=== PATIENT | male | born 1975 | race Hispanic/Latino ===

== ENCOUNTER 2019-06-29 21:32 | Emergency (ER) | payer BC ==
[~2019-06-29] VITALS: Ht 175.3 cm; Wt 130.2 kg
--- OUTSIDE RECORDS SUMMARY | 2019-06-29 21:35 | XMS REPORT ---
Author Author [facility] Address Unknown Phone Unavailable Care Team Providers Care Young Adult Librarian Name Role Phone Unavailable Unavailable Problems This patient has no known problems. Allergies, Adverse Reactions, Alerts This patient has no known allergies or adverse reactions. Medications This patient has no known medications. Encounters Start Date/Time End Date/Time Encounter Type Admission Type Attending [facility] Facility Care Department Encounter ID 2017-07-30 00:00:00 2017-07-30 00:00:00 Outpatient [facility] [id number] 2017-07-29 00:00:00 2017-07-29 00:00:00 Outpatient [facility] [id number] 2017-07-17 19:25:23 2017-07-17 19:25:23 Emergency [facility] [id number]
--- NOTE | 2019-06-30 01:15 | NUR ---
pt sleeping at this time. NAD noted
--- NOTE | 2019-06-30 01:26 | Diagnostic Imaging Report ---
EXAM: CT Abdomen WITHOUT contrast INDICATION: Abdominal pain COMPARISON: None. TECHNIQUE: Abdomen was scanned utilizing a multidetector helical scanner from the lung base to the iliac crest without administration of IV contrast. Absence of intravenous contrast decreases sensitivity for detection of focal lesions and vascular pathology. Coronal and sagittal reformations were obtained. Routine protocol was performed. IV CONTRAST: None ORAL CONTRAST: None COMPLICATIONS: None RADIATION DOSE: Total DLP: 1368 mGy*cm Estimated effective dose: (DLP x 0.015 x size factor) mSv CTDIvol has been reviewed. It is below the limits set by the Radiation Protocol Committee (RPC). Dose modulation, iterative reconstruction, and/or weight based adjustment of the mA/kV was utilized to reduce the radiation dose to as low as reasonably achievable. FINDINGS: LINES and TUBES: None. LOWER THORAX: Unremarkable HEPATOBILIARY: Diffuse hepatic hypoattenuation. No focal hepatic lesions. No biliary ductal dilation. GALLBLADDER: No radio-opaque stones or sludge. No wall thickening. SPLEEN: No splenomegaly. PANCREAS: No focal masses or ductal dilatation. ADRENALS: No adrenal nodules KIDNEYS/URETERS: No hydronephrosis. No cystic or solid mass lesions. No stones. Multiple bilateral nonobstructive renal calculi, largest in the right kidney is in the superior pulmonary calyx and measures 9 mm, largest in the left kidney is in an inferior pole minor calyx and measures 5 mm. GI TRACT: Subtle focal wall thickening and pericolonic fat stranding at the distal descending colon. Numerous colonic diverticula. No abnormal distention or evidence of bowel obstruction. LYMPH NODES: No lymphadenopathy. VESSELS: Unremarkable. PERITONEUM / RETROPERITONEUM: No free air or fluid. BONES: Unremarkable. SOFT TISSUES: There are fat containing inguinal hernias. IMPRESSION: 1. Acute uncomplicated distal descending colon diverticulitis. There are also diverticuli throughout the colon. 2. Multiple bilateral nonobstructive renal calculi as described above. 3. Hepatic steatosis. Signed by: Huey Sharif DO on 06/30/2019 1:23 AM
[2019-06-30] MEDS ORDERED: FLAGYL250 MG PO (01:38)
[2019-06-30] MEDS ORDERED: CIPRO500 MG PO (01:38)
[2019-06-30] MEDS ORDERED: PIPER-TAZ 3.375 GM 50 ML ONE (01:40)
[2019-06-30 01:41] VITALS: BP 179/98
[2019-06-30] MEDS ORDERED: PIPER-TAZ 3.375 GM 50 ML IV ONE (01:45)
== END 2019-06-30 02:07 | disposition home or self-care (01) ==
LOC: FSED 21:32
DX: R10.32 Left lower quadrant pain (principal); K57.32 Diverticulitis of large intestine without perforation or abscess without bleeding; I10 Essential (primary) hypertension
CPT/HCPCS: 74176; 80053; 81003; 85025; 99283; J2543

== ENCOUNTER 2020-01-17 18:18 | Emergency (ER) | payer BC ==
[~2020-01-17] VITALS: Ht 175.3 cm; Wt 104.3 kg
[~2020-01-17 18:18] MED LIST: CIPRO500 MG PO; FLAGYL250 MG PO
[2020-01-17] MEDS ORDERED: KETOROLAC TROMETHAMINE 30 MG/ML VIAL IV STA (18:41)
[2020-01-17] MEDS ORDERED: METRONIDAZOLE 500MG/NS 100ML 100 ML IV ONE (18:45)
[2020-01-17] MEDS ORDERED: SODIUM CHLORIDE 0.9% 1000ML 1,000 ML IV SCH (18:45)
[2020-01-17] MEDS ORDERED: AMLODIPINE BESY10 MG PO (18:47)
[2020-01-17] MEDS ORDERED: DIATRIZOATE MEGL/DIATRIZOA SOD 30 ML BTL PO ONE (18:48)
--- OUTSIDE RECORDS SUMMARY | 2020-01-17 18:51 | XMS REPORT | Continuity of Care Document ---
Author Author [facility] t Organization [facility] Address [address] [place] [address] Phone Unavailable Care Team Providers Care Adolescent Counselor Name Role Phone NONSTAFF PCP Unavailable Cristobal CARR Unavailable Payers Payer Name Policy Type Policy Number Effective Date Expiration Date [facility] [facility] [employer] Ppo [id number] 2019 00:00:00 [facility] Problems Condition Name Condition Details Condition Category Status Onset Date Resolution Date Last Treatment Date Treating Clinician Comments Source Visual disturbance Visual disturbance Disease Active [facility] Allergies, Adverse Reactions, Alerts This patient has no known allergies or adverse reactions. Family History Family Member Diagnosis Comments Start Date Stop Date Source Natural brother Hypertension [facility] Natural brother Seizures [place] [facility] Natural father Arthritis [facility] lt Natural father Hypertension [facility] ealth Paternal grandfather Hypertension [facility] Social History Social Habit Start Date Stop Date Quantity Comments Source Sex Assigned At [facility] Alcohol intake 2017-07-17 00:00:00 2017-07-17 00:00:00 Current non-drinker of alcohol (finding) [facility] Smoking Status Start Date Stop Date Source Never smoker [facility] Medications Ordered Medication Name Filled Medication Name Start Date Stop Da te Current Medication? Ordering Clinician Indication Dosage Frequency Signature (SIG) Comments Components Source Ciprofloxacin Hcl (Cipro) 500 Mg Tablet Ciprofloxacin Hcl (C ipro) 500 Mg Tablet 2019-06-30 00:00:00 Yes Yuval Carr Md 500 Every 12 Hours [facility] Metronidazole (Flagyl) 250 Mg Tablet Metronidazole (Flagyl) 250 Mg Tablet 2019-06-30 00:00:00 Yes Yuval Carr Md 500 Three Times A Day [facility] Procedures This patient has no known procedures. Plan of Care Planned Activity Planned Date Details Comments Source Future Scheduled Test 2020-02-15 00:00:00 IMM Influenza Seas onal Feb to July (>/= 19 yrs) [code = IMM Influenza Seasonal Feb to July (>/= 19 yrs)] [facility] Encounters Start Date/Time End Date/Time Encounter Type Admission Type Attendi [facility] Care Department Encounter ID Source 2019-06-29 21:32:00 2019-06-30 02:07:00 Departed Emergency Room 1 YUVAL CARR [facility] [id number] [facility] 2017-07-30 00:00:00 2017-07-30 00:00:00 Outpatient [facility] [id number] [facility] 2017-07-29 00:00:00 2017-07-29 00:00:00 Outpatient [facility] [id number] [facility] 2017-07-17 19:25:23 2017-07-17 19:25:23 Emergency [facility] [id number] [facility] Results Test Description Test Time Test Comments Results Result Comments Source CT ABD/PEL WO CONTRAST-HOPD 2019-06-30 01:10:00 [place] [address] Patient Name: GUILLERMO TREJO MR #: [id number] : 1975 Age/Sex: 44/M Req #: [id number] Adm Physician: Ordered by: YUVAL CARR MD Report #: [id number] Location: [facility] Room/Bed: Procedure: [id number] HOPD/CT ABD/PEL WO CONTRAST-HOPD Exam Date: 06/29/19 Exam Time: 2355 REPORT STATUS: Signed EXAM: CT Abdomen WITHOUT contrast INDICATION: Abdominal pain COMPARISON: None. TECHNIQUE: Abdomen was scanned utilizing a multidetector helical scanner from the lung base to the iliac crest without administration of IV contrast. Absence of intravenous contrast decreases sensitivity for detection of focal lesions and vascular pathology. Coronal and sagittal reformations were obtained. Routine protocol was performed. IV CONTRAST: None ORAL CONTRAST: None COMPLICATIONS: None RADIATION DOSE: Total DLP: 1368 mGy*cm Estimated effective dose: (DLP x 0.015 x size factor) mSv CTDIvol has been reviewed. It is below the limits set by the Radiation Protocol Committee (RPC). Dose modulation, iterative reconstruction, and/or weight based adjustment of the mA/kV was utilized to reduce the radiation dose to as low as reasonably achievable. FINDINGS: LINES and TUBES: None. LOWER THORAX: Unremarkable HEPATOBILIARY: Diffuse hepatic hypoattenuation. No focal hepatic lesions. No biliary ductal dilation. GALLBLADDER: No radio-opaque stones or sludge. No wall thickening. SPLEEN: No splenomegaly. PANCREAS: No focal masses or armando oumar dilatation. ADRENALS: No adrenal nodules KIDNEYS/URETERS: No hydronephrosis. No cystic or solid mass lesions. No stones. Multiple bilateral nonobstructive renal calculi, largest in the right kidney is in the superior pulmonary calyx and measures 9 mm, largest in the left kidney is in an inferior pole minor calyx and measures 5 mm. GI TRACT: Subtle focal wall thickening and pericolonic fat stranding at the distal descending colon. Numerous colonic diverticula. No abnormal distention or evidence of bowel obstruction. LYMPH NODES: No lymphadenopathy. VESSELS: Unremarkable. PERITONEUM / RETROPERITONEUM: No free air or fluid. BONES: Unremarkable. SOFT TISSUES: There are fat containing inguinal hernias. IMPRESSION: 1. Acute uncomplicated distal descending colon diverticulitis. There are also diverticuli throughout the colon. 2. Multiple bilateral nonobstructive renal calculi as described above. 3. Hepatic steatosis. Signed by: Huey Sharif DO on 06/30/2019 1:23 AM Dictated By: HUEY SHARIF DO 2 Transcribed By: CARLITOS on 06/30/19122 COPY TO: YUVAL CARR MD
--- OUTSIDE RECORDS SUMMARY | 2020-01-17 18:51 | XMS REPORT | Clinical Summary ---
Author Author [facility] ict Organization [facility] ict Address Unknown Phone Unavailable Care Team Providers Care Manager Of Corporate Name Role Phone PCP Unavailable Allergies Comments Active Allergy Reactions Severity Noted Date No Known Allergies 05/26/2010 Medications No known medications Active Problems Problem Noted Date Visual disturbance Family History Medical History Relation Name Comments Hypertension Brother Seizures Brother Arthritis Father Hypertension Father Hypertension Paternal Grandfather Relation Name Status Comments Brother Alive Brother Brother Father Alive Maternal Grandfather Alive Maternal Grandmother Alive Mother Alive Paternal Grandfather Paternal Grandmother Sister Alive Social History Date Tobacco Use Types Packs/Day Years Used Never Smoker Smokeless Tobacco: Never Used Drinks/Week oz/Week Comments Alcohol Use No Sex Assigned at Date Recorded Not on file Industry Job Start Date Occupation Not on file Not on file Not on file Travel End Travel History Travel Start No recent travel history available. Last Filed Vital Signs Not on file Plan of Treatment Health Maintenance Due Date Last Done Comments IMM Influenza Seasonal 02/15/2020 Oct to July (>/= 19 yrs) Results Not on fileafter 01/16/2019 Insurance Type Payer Benefit Subscriber ID Effective Phone Address Plan / Dates Group [facility] SELF-PAY SELF-PAY xxxxxxxxx 2017-P [phone] [address] [place] [address] [address] (Home) [place] [id number]
--- NOTE | 2020-01-17 19:00 | NUR ---
report recieved from [facility] iv infusing. antibotics infusing. pt states no relief from pain meds. pt sitting in bed watching TV. NAD noted.
--- NOTE | 2020-01-17 19:03 | NUR ---
Report to CHAKA Galvez
[2020-01-17] MEDS ORDERED: SODIUM CHLORIDE 0.9% 50ML 50 ML ONE (19:16)
[2020-01-17] MEDS ORDERED: IOPAMIDOL 370 MG/ML 200 ML INFUS..BTL INJ ONE (19:17)
[2020-01-17 20:42] VITALS: BP 142/90
--- NOTE | 2020-01-17 20:54 | Diagnostic Imaging Report ---
EXAM: CT Abdomen and pelvis WITH contrast INDICATION: LLQ pain/ with IV and oral COMPARISON: CT abdomen pelvis dated 06/29/2019.. TECHNIQUE: Abdomen and pelvis was scanned utilizing a multidetector helical scanner after administration of IV contrast. Coronal and sagittal reformations were obtained. Routine protocol was performed. IV CONTRAST: Administered ORAL CONTRAST: None COMPLICATIONS: None RADIATION DOSE: Total DLP: 821.47 mGy*cm Estimated effective dose: (DLP x 0.015 x size factor) mSv CTDIvol has been reviewed. It is below the limits set by the Radiation Protocol Committee (RPC). Dose modulation, iterative reconstruction, and/or weight based adjustment of the mA/kV was utilized to reduce the radiation dose to as low as reasonably achievable. FINDINGS: LINES and TUBES: None. LOWER THORAX: Unremarkable HEPATOBILIARY: Diffuse hepatic hypoattenuation. No focal hepatic lesions. No biliary ductal dilation. GALLBLADDER: No radio-opaque stones or sludge. No wall thickening. SPLEEN: No splenomegaly. PANCREAS: No focal masses or ductal dilatation. ADRENALS: No adrenal nodules KIDNEYS/URETERS: No hydronephrosis. No cystic or solid mass lesions. No stones. Multiple bilateral nonobstructive renal calculi are unchanged from prior exam, largest in the right kidney is in the superior pulmonary calyx and measures 9 mm, largest in the left kidney is in an inferior pole minor calyx and measures 5, similar to prior exam. GI TRACT: No abnormal distention, wall thickening, or evidence of bowel obstruction. Subtle focal wall thickening and pericolonic fat stranding at the distal descending colon. Numerous colonic diverticula. No abnormal distention or evidence of bowel obstruction. LYMPH NODES: No lymphadenopathy. VESSELS: Unremarkable. PERITONEUM / RETROPERITONEUM: No free air or fluid. BONES: Unremarkable. SOFT TISSUES: There are fat containing inguinal hernias. IMPRESSION: 1. Unchanged multiple bilateral nonobstructive renal calculi as described above. 2. Colonic diverticulosis with no evidence of diverticulitis. 3. Hepatic steatosis. Signed by: Noam Roa MD on 01/17/2020 8:51 PM
[2020-01-17] MEDS ORDERED: BACTRIM DS TAB1 EACH PO (21:03)
[2020-01-17] MEDS ORDERED: METRONIDAZOLE500 MG PO (21:04)
--- NOTE | 2020-01-17 21:19 | Emergency Department Note ---
History of Present Illnes History of Present Illness History of Present Illness This is a 44 year old male with a history of bilateral inguinal hernias, kidney stones, and diverticulitis who presents with sharp constant left lower quadrant pain since approximately 3:30 AM. He's had nausea with no vomiting. He's had 2 episodes of diarrhea which she describes as loose stools and not watery. He states the pain is similar to his previous episode of diverticulitis in the location and type of pain, but is more severe. He states this pain is not like his kidney stones pain especially since there is constant when his kidney stone pain was intermittent. No fever, no chills. No dysuria, no hematuria, no frequency, no urgency. Boat Buffer Plastic Required: No Onset (how long ago): hour(s) Radiation: Denies non-radiation Severity: moderate Duration (how long): hour(s) Timing of current episode: constant Progression: worsening Context: Denies trauma/injury Relieving factors: none Exacerbating factors: none Associated symptoms: Reports loss of appetite; Denies chest pain, Denies cough, Denies diaphoresis, Denies fever/chills, Denies headaches, Denies malaise, Denies rash, Denies shortness of breath Past Medical/Family History Physician Review I have reviewed the patient's past medical and family history. Any updates have been documented here. Past Medical History Recent Fever: No Past Medical History: Hypertension Other Medical History: No CAD Past Surgical History: Hernia Repair Social History Smoking Cessation: Never Smoker Any Illegal Drug Use: No Other Last Tetanus: unk Review of Systems Review of Systems Constitutional: Denies chills, Denies fever, Denies weakness EENTM: Reports no symptoms Cardiovascular: Reports no symptoms Respiratory: Reports no symptoms Gastrointestinal: Reports as per HPI Genitourinary: Reports no symptoms Musculoskeletal: Reports no symptoms Integumentary: Reports no symptoms Psychological: Reports no symptoms Hematological/Lymphatic: Reports no symptoms Physical Exam Related Data Allergies: Coded Allergies: No Known Allergies (Unverified , 06/30/19) Physical Exam CONSTITUTIONAL Constitutional: Present well-developed, Present well-nourished HENT HENT: Present normocephalic, Present atraumatic, Present oropharynx clear/moist, Present nose normal HENT L/R: Present left ext ear normal, Present right ext ear normal EYES Eyes: Reports PERRL, Reports conjunctivae normal NECK Neck: Present ROM normal PULMONARY Pulmonary: Present effort normal, Present breath sounds normal CARDIOVASCULAR Cardiovascular: Present regular rhythm, Present heart sounds normal, Present capillary refill normal, Present normal rate GASTROINTESTINAL Abdominal: Present soft, Present nontender, Present bowel sounds normal GENITOURINARY Genitourinary: Present exam deferred SKIN Skin: Present warm, Present dry MUSCULOSKELETAL Musculoskeletal: Present ROM normal NEUROLOGICAL Neurological: Present alert, Present oriented x 3, Present no gross motor or sensory deficits PSYCHOLOGICAL Psychological: Present mood/affect normal, Present judgement normal Results Laboratory Laboratory comments WBC 10.2, HGB 14.9, HCT 45.3, UA: nit/Paul/blood/glu/yovanny/ketones neg, pro 30 mg/dL, CMP WNL. Imaging Imaging Comments EXAM: CT Abdomen and pelvis WITH contrast INDICATION: LLQ pain/ with IV and oral COMPARISON: CT abdomen pelvis dated 06/29/2019.. TECHNIQUE: Abdomen and pelvis was scanned utilizing a multidetector helical scanner after administration of IV contrast. Coronal and sagittal reformations were obtained. Routine protocol was performed. IV CONTRAST: Administered ORAL CONTRAST: None COMPLICATIONS: None RADIATION DOSE: Total DLP: 821.47 mGy*cm Estimated effective dose: (DLP x 0.015 x size factor) mSv CTDIvol has been reviewed. It is below the limits set by the Radiation Protocol Committee (RPC). Dose modulation, iterative reconstruction, and/or weight based adjustment of the mA/kV was utilized to reduce the radiation dose to as low as reasonably achievable. FINDINGS: LINES and TUBES: None. LOWER THORAX: Unremarkable HEPATOBILIARY: Diffuse hepatic hypoattenuation. No focal hepatic lesions. No biliary ductal dilation. GALLBLADDER: No radio-opaque stones or sludge. No wall thickening. SPLEEN: No splenomegaly. PANCREAS: No focal masses or ductal dilatation. ADRENALS: No adrenal nodules KIDNEYS/URETERS: No hydronephrosis. No cystic or solid mass lesions. No stones. Multiple bilateral nonobstructive renal calculi are unchanged from prior exam, largest in the right kidney is in the superior pulmonary calyx and measures 9 mm, largest in the left kidney is in an inferior pole minor calyx and measures 5, similar to prior exam. GI TRACT: No abnormal distention, wall thickening, or evidence of bowel obstruction. Subtle focal wall thickening and pericolonic fat stranding at the distal descending colon. Numerous colonic diverticula. No abnormal distention or evidence of bowel obstruction. LYMPH NODES: No lymphadenopathy. VESSELS: Unremarkable. PERITONEUM / RETROPERITONEUM: No free air or fluid. BONES: Unremarkable. SOFT TISSUES: There are fat containing inguinal hernias. IMPRESSION: 1. Unchanged multiple bilateral nonobstructive renal calculi as described above. 2. Colonic diverticulosis with no evidence of diverticulitis. 3. Hepatic steatosis. Signed by: Noam Roa MD on 01/17/2020 8:51 PM Assessment & Plan Medical Decision Making MDM Differential dx includes, but is not limited to: Diverticulitis, kidney stone, small bowel obstruction, muscle strain/sprain, UTI, constipation, colitis, Chron's. CT shows diverticulosis, with no diverticulitis. However, Subtle focal wall thickening and pericolonic fat stranding at the distal descending colon. Given patients symptoms, will treat colonic findings with antibiotics. Gave strict return precautions and patient to have prompt followup. Assessment & Plan Final Impression: (1) Abdominal pain (2) Diverticulosis (3) Colitis Depart Disposition: HOME, SELF-custodial Meds Active Scripts Metronidazole (METRONIDAZOLE) 500 Mg Tablet, 500 MG PO TID for 10 Days, #30 TAB Prov:MELI GILLIAM MD 01/17/20 Sulfamethoxazole/Trimethoprim (BACTRIM DS TABLET) 1 Each Tablet, 1 TAB PO BID for 10 Days, #20 TAB Prov:MELI GILLIAM MD 01/17/20 Reported Medications Amlodipine Besylate (AMLODIPINE BESYLATE) 10 Mg Tablet, 20 MG PO DAILY, #30 TAB 01/17/20 Discontinued Scripts Ciprofloxacin Hcl (CIPRO) 500 Mg Tablet, 500 MG PO Q12H for 10 Days, #30 TAB Prov:STEPHANIE WYNN MD 06/30/19 Metronidazole (FLAGYL) 250 Mg Tablet, 500 MG PO TID for 10 Days, #30 TAB Prov:STEPHANIE WYNN MD 06/30/19 MELI GILLIAM MD Jan 17, 2020 18:45
== END 2020-01-17 21:19 | disposition home or self-care (01) ==
LOC: FSED 18:18
DX: K52.9 Noninfective gastroenteritis and colitis, unspecified (principal); K57.90 Diverticulosis of intestine, part unspecified, without perforation or abscess without bleeding; N20.0 Calculus of kidney; R10.32 Left lower quadrant pain; R11.0 Nausea; I10 Essential (primary) hypertension
CPT/HCPCS: 74177; 80053; 81003; 85025; 96374; 99284; J1885; J7030; Q9967

== ENCOUNTER 2020-08-15 18:45 | Emergency (ER) | payer BC ==
[~2020-08-15] VITALS: Ht 175.3 cm; Wt 104.3 kg
[~2020-08-15 18:45] MED LIST changes: +AMLODIPINE BESY10 MG PO; +BACTRIM DS TAB1 EACH PO; +METRONIDAZOLE500 MG PO
[2020-08-15] MEDS ORDERED: FAMOTIDINE 20 MG/2 ML VIAL IV STA (19:45)
[2020-08-15] MEDS ORDERED: SODIUM CHLORIDE 0.9% 1000ML 1,000 ML IV SCH (19:45)
[2020-08-15] MEDS ORDERED: ONDANSETRON HCL INJ 2MG/ML 2ML 2 MG/ML VIAL IV STA (19:45)
[2020-08-15] MEDS ORDERED: KETOROLAC TROMETHAMINE 30 MG/ML VIAL IV ONE (20:00)
[2020-08-15] MEDS ORDERED: ACETAMINOPHEN 325 MG TAB PO ONE (20:00)
[2020-08-15] MEDS ORDERED: ONDANSETRON ODT4 MG PO (20:56)
[2020-08-15] MEDS ORDERED: CIPRO500 MG PO (20:56)
[2020-08-15] MEDS ORDERED: METRONIDAZOLE500 MG PO (20:57)
== END 2020-08-15 21:15 | disposition home or self-care (01) ==
LOC: FSED 19:22
DX: A08.39 Other viral enteritis (principal); E66.01 Morbid (severe) obesity due to excess calories; I10 Essential (primary) hypertension; Z68.34 Body mass index [BMI] 34.0-34.9, adult
CPT/HCPCS: 80048; 80076; 81003; 85025; 87400; 99283

== ENCOUNTER 2021-01-31 08:55 | Emergency (ER) | payer BC ==
[~2021-01-31] VITALS: Ht 175.3 cm; Wt 126.2 kg
[~2021-01-31 08:55] MED LIST changes: +ONDANSETRON ODT4 MG PO
[2021-01-31] MEDS ORDERED: KETOROLAC TROMETHAMINE 30 MG/ML VIAL IV STA (09:41)
[2021-01-31] MEDS ORDERED: FAMOTIDINE 20 MG/2 ML VIAL IV STA (09:41)
[2021-01-31] MEDS ORDERED: ONDANSETRON HCL INJ 2MG/ML 2ML 2 MG/ML VIAL IV STA (09:41)
[2021-01-31] MEDS ORDERED: SODIUM CHLORIDE 0.9% 1000ML 1,000 ML IV SCH (09:45)
[2021-01-31] MEDS ORDERED: CLONIDINE HCL 0.1 MG TAB PO ONE (10:15)
[2021-01-31] MEDS ORDERED: CLONIDINE HCL 0.1 MG TAB ONE ×2 (10:20→10:21)
[2021-01-31] MEDS ORDERED: ONDANSETRON ODT4 MG PO (11:29)
[2021-01-31] MEDS ORDERED: FAMOTIDINE40 MG PO (11:36)
[2021-01-31] MEDS ORDERED: CEFDINIR300 MG PO (11:47)
[2021-01-31] MEDS ORDERED: AMLODIPINE-OLM1 EACH PO (11:49)
== END 2021-01-31 12:01 | disposition home or self-care (01) ==
LOC: FSED 09:30
DX: R11.2 Nausea with vomiting, unspecified (principal); K52.9 Noninfective gastroenteritis and colitis, unspecified; I10 Essential (primary) hypertension; B34.9 Viral infection, unspecified; J01.90 Acute sinusitis, unspecified; R51.9 Headache, unspecified
CPT/HCPCS: 80048; 80076; 81003; 85025; 96374; 96375; 99283; J1885; J2405; J7030

== ENCOUNTER 2021-06-19 17:18 | Emergency (ER) | payer BC ==
[~2021-06-19] VITALS: Ht 175.3 cm; Wt 124.5 kg
[~2021-06-19 17:18] MED LIST changes: +AMLODIPINE-OLM1 EACH PO; +CEFDINIR300 MG PO; +FAMOTIDINE40 MG PO
== END 2021-06-19 19:00 | disposition home or self-care (01) ==
LOC: FSED 17:25
DX: R07.89 Other chest pain (principal); R60.9 Edema, unspecified; I10 Essential (primary) hypertension
CPT/HCPCS: 71045; 80053; 82553; 84484; 85025; 85379; 93005; 99283

== ENCOUNTER 2021-09-11 09:46 | Emergency (ER) | payer BC ==
[~2021-09-11] VITALS: Ht 175.3 cm; Wt 124.8 kg
[2021-09-11] MEDS ORDERED: DICYCLOMINE HCL10 MG PO (10:21)
[2021-09-11] MEDS ORDERED: LEVOFLOXACIN250 MG PO (10:21)
[2021-09-11] MEDS ORDERED: KETOROLAC TROMETHAMINE 30 MG/ML VIAL IV STA (10:30)
[2021-09-11] MEDS ORDERED: SODIUM CHLORIDE 0.9% 1000ML 1,000 ML IV SCH (10:30)
[2021-09-11] MEDS ORDERED: IOPAMIDOL 370 MG/ML 100 ML INFUS..BTL INJ ONE (10:47)
[2021-09-11] MEDS ORDERED: SODIUM CHLORIDE 0.9% 1000ML 1,000 ML ONE (11:03)
[2021-09-11] MEDS ORDERED: KETOROLAC TROMETHAMINE 30 MG/ML VIAL ONE (11:03)
[2021-09-11] MEDS ORDERED: CIPROFLOXACIN 400 MG/D5W 200ML 200 ML IV ONE ×2 (11:30→11:57)
[2021-09-11] MEDS ORDERED: METRONIDAZOLE 500MG/NS 100ML 100 ML IV ONE ×2 (11:30→11:57)
[2021-09-11] MEDS ORDERED: CIPRO500 MG PO (13:20)
[2021-09-11] MEDS ORDERED: DICYCLOMINE HCL20 MG PO (13:22)
== END 2021-09-11 13:41 | disposition home or self-care (01) ==
LOC: FSED 10:16
DX: K57.92 Diverticulitis of intestine, part unspecified, without perforation or abscess without bleeding (principal); I10 Essential (primary) hypertension; Z79.899 Other long term (current) drug therapy; Z87.442 Personal history of urinary calculi
CPT/HCPCS: 74177; 80048; 80076; 81003; 85025; 96374; 99284; J0744; J1885; J7030; Q9967

== ENCOUNTER 2021-12-27 15:57 | Emergency (ER) | payer BC ==
[~2021-12-27] VITALS: Ht 175.3 cm; Wt 125.6 kg
[~2021-12-27 15:57] MED LIST changes: +DICYCLOMINE HCL10 MG PO; +DICYCLOMINE HCL20 MG PO; +LEVOFLOXACIN250 MG PO
[2021-12-27] MEDS ORDERED: ONDANSETRON HCL INJ 2MG/ML 2ML 2 MG/ML VIAL IV STA (16:15)
[2021-12-27] MEDS ORDERED: KETOROLAC TROMETHAMINE 30 MG/ML VIAL IV STA (16:15)
[2021-12-27] MEDS ORDERED: SODIUM CHLORIDE 0.9% 1000ML 1,000 ML IV SCH (16:15)
[2021-12-27] MEDS ORDERED: ONDANSETRON HCL INJ 2MG/ML 2ML 2 MG/ML VIAL ONE (17:06)
[2021-12-27] MEDS ORDERED: KETOROLAC TROMETHAMINE 30 MG/ML VIAL ONE (17:06)
[2021-12-27] MEDS ORDERED: SODIUM CHLORIDE 0.9% 1000ML 1,000 ML ONE (17:06)
[2021-12-27] MEDS ORDERED: IOPAMIDOL 370 MG/ML 100 ML INFUS..BTL INJ ONE (17:19)
[2021-12-27] MEDS ORDERED: CIPRO500 MG PO (18:50)
[2021-12-27] MEDS ORDERED: AUGMENTIN 500-1 EACH PO (18:50)
[2021-12-27] MEDS ORDERED: ACETAMINOPHEN-1 EAC4 PO (18:50)
== END 2021-12-27 19:18 | disposition home or self-care (01) ==
LOC: FSED 16:07
DX: R10.32 Left lower quadrant pain (principal); K57.32 Diverticulitis of large intestine without perforation or abscess without bleeding; N20.0 Calculus of kidney; I10 Essential (primary) hypertension; K21.9 Gastro-esophageal reflux disease without esophagitis
CPT/HCPCS: 74177; 80053; 81003; 85025; 99283; J1885; J2405; J7030; Q9967

== ENCOUNTER 2022-11-02 10:24 | Emergency (ER) | payer BC ==
[~2022-11-02] VITALS: Ht 175.3 cm; Wt 128.4 kg
[~2022-11-02 10:24] MED LIST changes: +ACETAMINOPHEN-1 EAC4 PO; +AUGMENTIN 500-1 EACH PO
[2022-11-02] MEDS ORDERED: FAMOTIDINE 20 MG/2 ML VIAL IV STA (12:05)
[2022-11-02] MEDS ORDERED: ONDANSETRON HCL INJ 2MG/ML 2ML 2 MG/ML VIAL IV STA (12:05)
[2022-11-02] MEDS ORDERED: KETOROLAC TROMETHAMINE 30 MG/ML VIAL IV STA (12:05)
[2022-11-02] MEDS ORDERED: SODIUM CHLORIDE 0.9% 1000ML 1,000 ML IV ONE (12:15)
[2022-11-02] MEDS ORDERED: IOPAMIDOL 370 MG/ML 100 ML INFUS..BTL INJ ONE (12:35)
[2022-11-02] MEDS ORDERED: CEFTRIAXONE 1 GM VIAL ONE (15:10)
[2022-11-02] MEDS ORDERED: FAMOTIDINE 20 MG/2 ML VIAL IV ONE (15:11)
[2022-11-02] MEDS ORDERED: KETOROLAC TROMETHAMINE 30 MG/ML VIAL ONE (15:11)
[2022-11-02] MEDS ORDERED: ONDANSETRON HCL INJ 2MG/ML 2ML 2 MG/ML VIAL ONE (15:11)
[2022-11-02] MEDS ORDERED: SODIUM CHLORIDE 0.9% 1000ML 1,000 ML ONE (15:11)
[2022-11-02 15:15] VITALS: O2SAT 97
[2022-11-02] MEDS ORDERED: TAMSULOSIN HCL 0.4 MG CAP PO ONE (15:15)
[2022-11-02] MEDS ORDERED: CEFDINIR300 MG PO (15:16)
[2022-11-02] MEDS ORDERED: ONDANSETRON ODT4 MG PO (15:17)
[2022-11-02] MEDS ORDERED: FLOMAX0.4 MG PO (15:17)
[2022-11-02] MEDS ORDERED: HYDROCODON-ACE1 EA12 PO (15:18)
[2022-11-02] MEDS ORDERED: TAMSULOSIN HCL 0.4 MG CAP ONE (15:20)
== END 2022-11-02 15:45 | disposition home or self-care (01) ==
LOC: FSED 10:35
DX: R11.2 Nausea with vomiting, unspecified (principal); K52.9 Noninfective gastroenteritis and colitis, unspecified; N13.2 Hydronephrosis with renal and ureteral calculous obstruction; R10.32 Left lower quadrant pain; N28.9 Disorder of kidney and ureter, unspecified; I10 Essential (primary) hypertension; K76.0 Fatty (change of) liver, not elsewhere classified
CPT/HCPCS: 74177; 80048; 81003; 85025; 96374; 96375; 96376; 99284; J0696; J1885; J2405; J7030; Q9967

== ENCOUNTER 2024-05-10 07:45 | Emergency (ER) | payer BC ==
[~2024-05-10] VITALS: Ht 175.3 cm; Wt 137.9 kg
[~2024-05-10 07:45] MED LIST changes: +FLOMAX0.4 MG PO; +HYDROCODON-ACE1 EA12 PO; +KETOROLAC TROME10 MG PO
[2024-05-10] MEDS: SODIUM CHLORIDE 0.9% 1000ML 1,000 ML IV ONE (08:25)
[2024-05-10] MEDS: ONDANSETRON HCL INJ 2MG/ML 2ML 2 MG/ML VIAL IV STA ×2 (08:33→10:18)
[2024-05-10] MEDS: Morphine 4mg INJECTION 4 MG/ML INJ IV ONE (08:34)
[2024-05-10] MEDS: KETOROLAC TROMETHAMINE 30 MG/ML VIAL IV STA (10:18)
[2024-05-10] MEDS ORDERED: EXFORGE 10-3201 EACH (11:16)
[2024-05-10] MEDS ORDERED: ONDANSETRON ODT4 MG PO (11:17)
[2024-05-10] MEDS ORDERED: HYDROCODON-ACE1 EA11 PO (11:18)
[2024-05-10 11:29] VITALS: PULSE 80; RESP 18; TEMP 98.4; O2SAT 96
== END 2024-05-10 11:28 | disposition home or self-care (01) ==
LOC: FSED 07:58
DX: R10.32 Left lower quadrant pain (principal); N13.2 Hydronephrosis with renal and ureteral calculous obstruction; R11.2 Nausea with vomiting, unspecified; I10 Essential (primary) hypertension; Z87.19 Personal history of other diseases of the digestive system
CPT/HCPCS: 74177; 80053; 81003; 85025; 96374; 96375; 96376; 99284; J1885; J2270; J2405; J7030

== ENCOUNTER 2024-12-23 19:42 | Emergency (ER) | payer BC ==
[~2024-12-23] VITALS: Ht 175.3 cm; Wt 128.4 kg
[~2024-12-23 19:42] MED LIST changes: +EXFORGE 10-3201 EACH; +HYDROCODON-ACE1 EA11 PO
[2024-12-23 20:33] VITALS: PULSE 96; RESP 18; TEMP 99
[2024-12-23 22:27] VITALS: BP 154/109; PULSE 96; RESP 18; TEMP 99; O2SAT 98
== END 2024-12-23 22:27 | disposition home or self-care (01) ==
LOC: FSED 21:46
DX: R30.0 Dysuria (principal); N20.0 Calculus of kidney; I10 Essential (primary) hypertension; E66.9 Obesity, unspecified; Z87.19 Personal history of other diseases of the digestive system
CPT/HCPCS: 81003; 99282